=== PATIENT | male | born 1970 | race Caucasian/White ===

== ENCOUNTER 2023-11-08 10:17 | Day surgery (SDC) | payer MEDICARE, MEDICAID ==
[~2023-11-08] VITALS: Ht 170.2 cm; Wt 117.9 kg
[2023-11-08] VITALS (8 sets, daily range): BP systolic 99–106; BP diastolic 62–87; PULSE 62–73; RESP 12–24; TEMP 98.2; O2SAT 93–100
[~2023-11-08 10:17] MED LIST: ASPI-1053 PO; BACL20TA PO; CARV6.252 PO; ENAL10TA78 PO; FENO160T13 PO; MONT-48 PO; MULT-342 PO; NITR0.4T48 SL; OMEG1CAP2 PO; OMEP40CA21 PO; PARO30TA4 PO; RISP0.5T80 PO; SIMV-42 PO; SPIR25TA PO; TRAM50TA2 PO
[2023-11-08] MEDS ORDERED: normal saline 1,000 ML IV SCH (10:40)
[2023-11-08] MEDS ORDERED: DICL50TA8 PO (10:52)
[2023-11-08] MEDS ORDERED: ROSU40TA22 PO (10:52)
[2023-11-08] MEDS ORDERED: SACU1TAB4 PO (10:52)
[2023-11-08] MEDS ORDERED: ALBU10.7 (10:52)
[2023-11-08] MEDS ORDERED: ALPR0.5T8 PO (10:52)
[2023-11-08] MEDS ORDERED: EMPA10TA PO (10:52)
[2023-11-08 11:16] LABS: WHITE BLOOD COUNT 8.5 X10'3 (4.5-11.0)
[2023-11-08 11:17] LABS: BASOPHILS # (AUTO) 0.1 X10'3 (0-0.2); BASOPHILS % (AUTO) 0.8 % (0-1); EOSINOPHILS # (AUTO) 0.3 X10'3 (0-0.9); EOSINOPHILS % (AUTO) 3.7 % (0-6); HEMATOCRIT 57.8 % (42.0-52.0); LYMPHOCYTES # (AUTO) 1.4 X10'3 (1.1-4.8); LYMPHOCYTES % (AUTO) 16.7 % (21-51); MEAN CORPUSCULAR VOLUME 94.1 FL (78-98); MEAN PLATELET VOLUME 10.2 FL (7.4-10.4); MONOCYTES # (AUTO) 0.6 X10'3 (0-0.9); NEUTROPHILS # (AUTO) 6.1 X10'3 (1.8-7.7); NEUTROPHILS % (AUTO) 71.8 % (42-75); PLATELET COUNT 201 X10'3 (140-440); RED BLOOD COUNT 6.13 X10'6 (4.70-6.10); RED CELL DISTRIBUTION WIDTH 19.5 % (11.5-14.5)
[2023-11-08] MEDS: diphenhydrAMINE 25mg capsule PO PRN (11:18)
[2023-11-08] MEDS: LORazepam 0.5 MG tablet PO PRN (11:19)
[2023-11-08 11:20] LABS: HEMOGLOBIN 19.7 g/dl (14.0-17.9)
[2023-11-08 11:23] LABS: ALBUMIN 4.4 G/DL (3.4-5.0); ANION GAP 8 (8-16); BLOOD UREA NITROGEN 11 MG/DL (7-18); BUN/CREATININE RATIO 8.9 (10.0-20.0); CALCIUM 9.4 MG/DL (8.5-10.1); CHLORIDE 100 MMOL/L (99-107); CREATININE 1.23 MG/DL (0.60-1.10); GLUCOSE 98 MG/DL (70-104); POTASSIUM 4.2 MMOL/L (3.5-5.1); SODIUM 140 MMOL/L (135-145); eCRCL 63 ML/MIN; eGFR 61 ML/MIN
[2023-11-08] MEDS ORDERED: LIDOcaine 1% (10mg/ml) 2ml vial ONE (11:31)
[2023-11-08] MEDS ORDERED: iohexol 350MG/ML 100ml bottle IV ONE (11:31)
[2023-11-08] MEDS ORDERED: heparin 1,000unit/ml 10ml vial 10 ML ONE (11:31)
[2023-11-08] MEDS ORDERED: verapamil 2.5 mg/ml inj IV ONE (11:31)
[2023-11-08] MEDS ORDERED: midazolam 1 mg/ML 2ml injection ONE (11:31)
[2023-11-08] MEDS ORDERED: nitroGLYCERIN 500mcg/5mL D5W 5 ML IV ONE (11:32)
[2023-11-08] MEDS ORDERED: famotidine/PF 10 mg/ml inj IV ONE (11:32)
[2023-11-08] MEDS ORDERED: fentaNYL/PF 50MCG/1 ML 2ML syringe ONE (11:33)
[2023-11-08 11:49] LABS: ANISOCYTOSIS 2+; PLATELET ESTIMATE NORMAL
[2023-11-08 12:17] LABS: PROTHROMBIN TIME 11.1 SECONDS (9.0-12.0)
[2023-11-08] MEDS ORDERED: LIDOcaine 1% 30ml preserv. free vial ONE (12:30)
[2023-11-08] MEDS ORDERED: iohexol 350 MG/ML 50ML vial IV ONE (12:45)
[2023-11-08 13:15] LABS: ISTAT Hct ART 50 %PCV (42-52); ISTAT O2 SATURATION ARTERIAL 91 % (95-98); ISTAT SOURCE ART
[2023-11-08] MEDS ORDERED: HYDROcodone/acetaminophen 10/325mg tab PO PRN (13:25)
[2023-11-08] MEDS ORDERED: HYDROcodone/acetaminophen 5mg/325mg tablet PO PRN (13:25)
[2023-11-09 06:40] LABS: ISTAT HGB MIX 16.3 g/dl (14.0-17.9); ISTAT Hct MIX 48 %PCV (42-52); ISTAT O2 SATURATION MIX VENOUS 63 % (60-80); ISTAT SOURCE VEN
== END 2023-11-08 15:30 | disposition home or self-care (01) ==
LOC: SSTAY O 10:17
PROVIDERS: ATTEND Student in an Organized Health Care Education/Training Program
DX: I11.0 Hypertensive heart disease with heart failure (principal); I50.22 Chronic systolic (congestive) heart failure; I25.10 Atherosclerotic heart disease of native coronary artery without angina pectoris; E78.00 Pure hypercholesterolemia, unspecified; K21.9 Gastro-esophageal reflux disease without esophagitis; F32.A Depression, unspecified; F43.10 Post-traumatic stress disorder, unspecified; Z95.810 Presence of automatic (implantable) cardiac defibrillator; Z79.82 Long term (current) use of aspirin; Z79.899 Other long term (current) drug therapy; Z95.1 Presence of aortocoronary bypass graft; Z88.5 Allergy status to narcotic agent
CPT/HCPCS: 36415; 80048; 82803; 85014; 85025; 85610; 93005; 93461; 99152; 99153; J1644; J2250; J3010; J3490; J7030; Q0163; Q9967; 85008; C1751; C1760; C1894